=== PATIENT | male | born 1965 | race Hispanic/Latino ===

== ENCOUNTER 2021-12-09 13:42 | Emergency (ER) | payer OTHER ==
[~2021-12-09] VITALS: Ht 182.9 cm; Wt 88.5 kg
[2021-12-09 13:43] VITALS: BP 116/71
[2021-12-09] MEDS ORDERED: CLINDAMYCIN 150 MG CAP PO ONE (14:30)
[2021-12-09] MEDS ORDERED: HYDROCODONE/ACETAMINOPHEN 5/325 MG TAB PO ONE (14:30)
[2021-12-09 14:55] LABS: BASOPHILS % (AUTO) 0.2 % (0.0-5.0); EOSINOPHILS % (AUTO) 0.1 % (0.0-8.0); HEMATOCRIT 43.9 % (42-54); LYMPHOCYTES % (AUTO) 10.2 % (21.0-51.0); MEAN CORPUSCULAR HGB CONC 33.3 g/dL (32.0-36.0); MEAN CORPUSCULAR VOLUME 90.1 fL (79-99); MONOCYTES % (AUTO) 8.6 % (3.0-13.0); NEUTROPHILS % (AUTO) 80.1 % (40.0-77.0); PLATELET COUNT (AUTO) 192 K/uL (130-400); RED BLOOD CELL COUNT(AUTO) 4.87 MIL/uL (4.50-6.20); RED CELL DISTRIBUTION WIDTH 13.1 % (11.0-15.5); WHITE BLOOD COUNT (AUTO) 20.9 K/uL (4.8-10.8)
[2021-12-09] MEDS ORDERED: CLIN-141 PO (15:04)
[2021-12-09] MEDS ORDERED: NAPR-1180 PO (15:04)
[2021-12-09 15:26] LABS: CREATININE 1.2 mg/dL (0.5-1.5); POTASSIUM 3.8 mmol/L (3.5-5.1)
[2021-12-09 15:31] LABS: ALBUMIN 3.3 g/dL (3.5-5.0); BILIRUBIN,TOTAL 1.5 mg/dL (0.2-1.0); TOTAL PROTEIN, SERUM 7.5 g/dL (6.0-8.3)
== END 2021-12-09 15:36 | disposition home or self-care (01) ==
LOC: EDH 13:42
DX: L03.116 Cellulitis of left lower limb (principal); B35.3 Tinea pedis; Z79.899 Other long term (current) drug therapy
CPT/HCPCS: 36415; 73590; 80053; 83605; 85025; 93971